=== PATIENT | male | born 1955 | race Caucasian/White ===

== ENCOUNTER → 2018-02-11 15:38 | Outpatient (CLI) | payer BC, SELFPAY ==
--- NOTE | 2018-02-11 15:46 | XR_ITS ---
EXAM: XR thoracic spine 3V HISTORY: ITS.REASON: THORACIC/LUMBAR BACK PAIN Comparison: None FINDINGS: Normal alignment. No fracture or dislocation. No lytic or blastic change. Small right-sided endplate osteophytes are present at T10-T11. Minimal degenerative disc disease noted in the midthoracic spine. IMPRESSION: Mild thoracic spine spondylosis, no acute finding
--- NOTE | 2018-02-11 15:46 | XR_ITS ---
EXAM: XR lumbar spine min 4V HISTORY: ITS.REASON: THORACIC/LUMBAR BACK PAIN ORDERING PHYSICIAN: Esteban Jones PATIENT AGE: 63 years COMPARISON: None FINDINGS: Normal alignment. No fracture or dislocation. No lytic or blastic change. No significant degenerative change. The disc spaces are preserved. IMPRESSION: Negative lumbar spine
== END ==
PROVIDERS: PCP Internal Medicine; Visit Provider Internal Medicine
DX: M54.5 Low back pain (principal); M54.6 Pain in thoracic spine
CPT/HCPCS: 72072; 72110

== ENCOUNTER 2018-03-11 10:30 | Outpatient (RCR) | payer BC, SELFPAY ==
--- NOTE | 2018-03-04 11:58 | HMH.PTOPEV ---
PT Outpatient Evaluation Rehab PT Outpatient Evaluation Start: 03/04/18 11:42 Freq: Status: Active Protocol: Document 03/04/18 11:43 CRISTA (Rec: 03/04/18 11:58 CRISTA [id number]) Electronically Signed By Murray Charles, PT 03/04/18 11:43 Outpatient Therapy Subjective History Subjective History Pt is s a 63 year old male presenting to outpatient PT with reports of thoracic and lumbar spine pain (thoracic> lumbar) of insidious onset starting in 2000 with the most recent exacerbation starting 12/2017. Main complaint is thoracic pain espcially in operating position. 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 Chief Complaint Pain Spasms Stiff Symptom Type Sharp Symptoms Relieved By Rest/Positioning Ice Symptoms Aggravated By Bending/Stooping Lifting Prior Functional Limitations None Current Functional Limitations Reaching Lifting Housework Driving Recreation Activity Symptom Description Intermittent Level of pain today (0-10) 0 Pain scale - at its best (0-10) 0 Pain scale - at its worst (0-10) 7 Lumbopelvic Eval Posture Thoracic Spine Posture Standing Position Increased Kyphosis Lumbar Spine Posture Standing Position Decreased Lordosis Assistive device Assistive Devices None / NA Palapation tenderness bilateral lumbar spinal tenderness Yes paraspinal tenderness Yes Accessory Movement T10 bilateral T11 bilateral T12 bilateral Range of Motion Lumbar Spine Active Flexion Range of 85 Motion (degrees) Lumbar Spine Active Extension Range of 25 Motion (degrees) Left Lumbar Spine Lateral Flexion Active 15 Range of Motion (degrees) Right Lumbar Spine Lateral Flexion 15 Active Range of Motion (degrees) Lumbar Spine ROM Limitations Soft Tissue Tightness Bony Restriction Manual Muscle Test Bilateral Knee Extension Strength Grade 5 Normal Knee Flexion Strength Grade 5 Normal Hip Flexion Strength Grade
== END 2018-03-11 10:31 | disposition home or self-care (01) ==
LOC: PT 10:30
PROVIDERS: Family Provider Internal Medicine; PCP Internal Medicine; Visit Provider Internal Medicine
DX: M54.6 Pain in thoracic spine (principal); M54.5 Low back pain
CPT/HCPCS: 97110; 97163

== ENCOUNTER → 2018-04-15 11:51 | Outpatient (CLI) | payer BC, SELFPAY | PROVIDERS: PCP Internal Medicine; Visit Provider Internal Medicine | DX: I10 Essential (primary) hypertension (principal); R53.83 Other fatigue | CPT/HCPCS: 93005 ==

== ENCOUNTER → 2018-11-04 07:31 | Outpatient (CLI) | payer BC, SELFPAY ==
[2018-11-04 08:09] LABS: Basophils % 0.7 % (0.1-2.0); Eosinophils # 0.2 K/mm3 (0.0-0.4); Eosinophils % 3.7 % (0.1-12.0); Hemoglobin 15.6 g/dL (14.1-18.0); Lymphocytes # 1.1 K/mm3 (0.7-4.5); Lymphocytes % 20.8 % (10-50); Mean Corpuscular HGB Conc 34.6 g/dL (31.8-35.4); Mean Corpuscular Hemoglobin 30.5 pg (27.0-31.2); Mean Corpuscular Volume 88.2 fl (80-94); Mean Platelet Volume 6.5 fl (7.4-10.4); Monocytes # 0.3 K/mm3 (0.1-1.0); Monocytes % 5.1 % (1.7-9.3); Neutrophils # 3.6 K/mm3 (1.8-7.8); Neutrophils % 69.6 % (37.0-80.0); Platelet Count 265 K/mm3 (142-424); Red Blood Count 5.11 M/mm3 (4.60-6.20); Red Cell Distribution Width 12.5 % (11.5-17.5); White Blood Count 5.1 K/mm3 (4.8-10.8)
[2018-11-04 09:02] LABS: Alanine Aminotransferase 27 U/L (12-78); Albumin/Globulin Ratio 1.2 (1.1-1.8); Alkaline Phosphatase 63 U/L (46-116); Anion Gap 13.6 mEq/L (5-15); Aspartate Amino Transferase 14 U/L (15-37); Bilirubin,Total 0.8 mg/dL (0.2-1.0); Blood Urea Nitrogen 9 mg/dL (7-18); Calcium 8.8 mg/dL (8.5-10.1); Carbon Dioxide 26 mmol/L (21.0-32.0); Chloride 95 mmol/L (98-107); Creatinine,Serum 0.82 mg/dL (0.70-1.30); Estimated Glomerular Filt Rate 95 ml/min (>60); GFR (African American) 114 ML/MIN (>60); Globulin 3.3 gm/dl (1.3-3.2); Glucose 95 mg/dL (74-106); Potassium 4.6 mmoL/L (3.5-5.1); Sodium 130 mmol/L (136-145); Total Protein,Serum 7.3 gm/dL (6.4-8.2)
== END ==
PROVIDERS: Visit Provider Specialist
DX: R42 Dizziness and giddiness (principal)
CPT/HCPCS: 36415; 80053; 85025

== ENCOUNTER → 2018-11-12 12:46 | Outpatient (CLI) | payer BC, SELFPAY ==
[2018-11-15 08:50] LABS: C difficile Toxins AB, EIA Negative (Negative)
== END ==
PROVIDERS: Visit Provider Internal Medicine
DX: T36.95XA Adverse effect of unspecified systemic antibiotic, initial encounter (principal); A02.9 Salmonella infection, unspecified
CPT/HCPCS: 87045; 87205; 87324

== ENCOUNTER → 2018-11-17 08:40 | Outpatient (CLI) | payer BC, SELFPAY | PROVIDERS: PCP Internal Medicine; Visit Provider Specialist | DX: R42 Dizziness and giddiness (principal) | CPT/HCPCS: 94762 ==

== ENCOUNTER 2018-12-21 17:30 | Outpatient (RCR) | payer BC, SELFPAY ==
--- NOTE | 2018-11-03 18:43 | HMH.PTOPEV ---
PT Outpatient Evaluation Rehab PT Outpatient Evaluation Start: 11/03/18 18:35 Freq: Status: Active Protocol: Document 11/03/18 18:35 DASH (Rec: 11/03/18 18:43 PWDOMINICK [id number]) Electronically Signed By Cale Ellsworth, PT 11/03/18 18:35 Outpatient Therapy Subjective History Subjective History This is the initial Physical THerapy evaluation for Elyssa FernandesDonald Pauly. Pt is a 63 y/o male referred to PT for c/o dizziness. Pt rpeorts complaints began after long air trip and two week cruise. Pt rpeorts he noticed S&S after returning home and felt they were just jet lag and residual motion sickness from the cruise. Pt reports as time went by S&S did not subside. Pt reports S&S are normally worse w/ L rotation and or vertical head displacement. Chief Complaint Other Symptom Type Other Symptoms Relieved By Rest/Positioning Symptoms Aggravated By Bending/Stooping,Twisting, Walking Prior Functional Limitations None Current Functional Limitations Driving,Sleeping,Recreation Activity,Bending/Stooping Symptom Description Intermittent Balance Eval Chief Complaint Did you feel dizzy, unsteady or faint? Yes Hx of Falls Hx Falls No Gait/Posture Asssessment General Gait Observation No Deviations/Normal,Wide Based Gait Assistive Devices None / NA Level of Transfer Assist Independent Hip Observation in Gait Swing No Deviation Hip Observation in Gait Stance No Deviation Ankle/Foot Observation in Gait Swing No Deviation Ankle/Foot Observation in Gait Stance No Deviation Hip Posture Standing Position (L) Neutral,(R) Neutral Body Alignment Posture Rigid Nystagmus Nystagmus Presence None Oculomotor Gaze Oculomotor Gaze Nml: Vergence Smooth Pursuit Saccades VOR Cancellation Cover/Uncover Cross Cover Outpatient Therapy Assessment Impairments Problems/Impairmments Impaired Walking,Impaired Shower/Bathing,Impaired Household Care,Impaired
== END 2018-12-21 17:35 | disposition home or self-care (01) ==
LOC: PT 17:30
PROVIDERS: Visit Provider Specialist
DX: R42 Dizziness and giddiness (principal)
CPT/HCPCS: 97010; 97012; 97014; 97110; 97140; 97163; G0283

== ENCOUNTER → 2019-03-03 18:30 | Outpatient (CLI) | payer MEDICARE, BC, SELFPAY ==
[2019-03-04 08:06] LABS: Adenovirus F 40/41, stool Not Detected (NotDetected); Astrovirus Not Detected (NotDetected); Campylobacter Not Detected (NotDetected); Clostridium Difficile A/B, PCR Not Detected (NotDetected); Cryptosporidium Not Detected (NotDetected); Cyclospora Cayetanesis Not Detected (NotDetected); Entamoeba histolytica Not Detected (NotDetected); Enteroaggregative E coli Not Detected (NotDetected); Enteropathogenic E coli Not Detected (NotDetected); Enterotoxigenic E coli Not Detected (NotDetected); Giardia lamblia Not Detected (NotDetected); Norovirus Not Detected (NotDetected); Plesimonas Shigalloides, PCR Not Detected (NotDetected); Rotavirus A Not Detected (NotDetected); Salmonella, PCR Not Detected (NotDetected); Sapovirus Not Detected (NotDetected); Shiga-like toxin E coli Not Detected (NotDetected); Shigella Enterovasive E coli Not Detected (NotDetected); Vibrio Cholerae Not Detected (NotDetected); Vibrio, PCR Not Detected (NotDetected); Yersinia Entercolitica, PCR Not Detected (NotDetected)
== END ==
PROVIDERS: Visit Provider Internal Medicine
DX: R19.7 Diarrhea, unspecified (principal)
CPT/HCPCS: 87205; 87506

== ENCOUNTER → 2019-03-29 17:37 | Outpatient (CLI) | payer MEDICARE, BC, SELFPAY ==
[2019-03-29 19:32] LABS: Prostate Specific Ag Screen 1.8 ng/mL (0.0-4.0)
== END ==
PROVIDERS: Visit Provider Internal Medicine
DX: Z12.5 Encounter for screening for malignant neoplasm of prostate (principal)
CPT/HCPCS: 36415; G0103

== ENCOUNTER → 2019-06-12 14:44 | Outpatient (POV) | payer MEDICARE, BC, SELFPAY | PROVIDERS: Visit Provider Nurse Practitioner Family | DX: Z00.00 Encounter for general adult medical examination without abnormal findings (principal) ==

== ENCOUNTER → 2019-07-26 09:39 | Outpatient (CLI) | payer MEDICARE, BC, SELFPAY ==
[2019-07-26 09:59] LABS: Basophils % 0.1 % (0.1-2.0); Eosinophils # 0.1 K/mm3 (0.0-0.4); Eosinophils % 1.9 % (0.1-12.0); Hematocrit 46.9 % (42.0-52.0); Hemoglobin 15.9 g/dL (14.1-18.0); Lymphocytes # 1.1 K/mm3 (0.7-4.5); Lymphocytes % 16.4 % (10-50); Mean Corpuscular HGB Conc 33.9 g/dL (31.8-35.4); Mean Corpuscular Hemoglobin 30.6 pg (27.0-31.2); Mean Corpuscular Volume 90.3 fl (80-94); Mean Platelet Volume 6.7 fl (7.4-10.4); Monocytes # 0.2 K/mm3 (0.1-1.0); Monocytes % 3.6 % (1.7-9.3); Neutrophils # 5.3 K/mm3 (1.8-7.8); Neutrophils % 78.1 % (37.0-80.0); Platelet Count 257 K/mm3 (142-424); Red Blood Count 5.19 M/mm3 (4.60-6.20); Red Cell Distribution Width 12.4 % (11.5-17.5); White Blood Count 6.8 K/mm3 (4.8-10.8)
--- NOTE | 2019-07-26 10:02 | ECG_ITS ---
APPROVED REPORT Exam: Resting ECG HR:73 bpm ECG Measurements Heart Rate 73 AXES OR 140 P 51 QRSd 88 QRS 5 QT 388 T 22 QTc 427 <Conclusion> Normal sinus rhythm Normal ECG Electronically signed by : Esteban Jones, 07/26/2019 10:40:27
--- NOTE | 2019-07-26 10:02 | XR_ITS ---
PROCEDURE: XR CHEST 2V CLINICAL HISTORY: WEAKNESS,SIZZINESS,SOB COMPARISON: CXR CHEST(2 VIEWS-NOT PORTABLE) from 01/24/2016 FINDINGS: The cardiomediastinal silhouette and pulmonary vascularity are within normal limits. The lungs are clear without infiltrates, suspicious nodules, or pleural effusions. No acute bony abnormalities. IMPRESSION: No acute findings. Dictated by: Bipin Cruz MD 07/26/2019 10:24 Electronically signed by Bipni Cruz MD in [facility] 07/26/2019 10:24
[2019-07-26 10:08] LABS: Blood Urea Nitrogen 14 mg/dL (7-18); Potassium 4.2 mmoL/L (3.5-5.1)
[2019-07-26 10:15] LABS: Anion Gap 11.2 mEq/L (5-15); Calcium 8.9 mg/dL (8.5-10.1); Carbon Dioxide 30 mmol/L (21.0-32.0); Chloride 102 mmol/L (98-107); Estimated Glomerular Filt Rate 75 ml/min (>60); GFR (African American) 91 ML/MIN (>60); Glucose 105 mg/dL (74-106); Sodium 139 mmol/L (136-145)
[2019-07-26 10:23] LABS: Troponin I < 0.02 ng/ml (0.00-0.06)
== END ==
PROVIDERS: Visit Provider Internal Medicine
DX: R06.02 Shortness of breath (principal); R53.1 Weakness; R42 Dizziness and giddiness; I10 Essential (primary) hypertension
CPT/HCPCS: 36415; 71046; 80048; 84484; 85025; 93005

== ENCOUNTER → 2019-08-04 07:46 | Outpatient (CLI) | payer MEDICARE, BC, SELFPAY ==
--- NOTE | 2019-08-04 | CA_ITS ---
APPROVED REPORT EXAM: Comprehensive 2D, Doppler, and color-flow Echocardiogram Interior Surface Insulation Worker: Re Singleton CRT Ht: 5 ft 10 in Wt: 170lbs BSA: 1.95 BP: 120/70 mmHg Indications: Shortness of Breath, Dizziness and Vertigo, Fatigue 2D Dimensions LVOT 1.67 cm (M/F) 1.5-2.5 M-Mode Dimensions RVDd 2.18 cm (0.9-2.6) LVDd 4.56 cm (3.5-5.7) LVDs 3.74 cm (3.5-5.7) IVSd 0.82 cm (0.6-1.1) PWd 1.07 cm (0.6-1.1) EF (Teich) 37.50% FS 18.00% EDV (Teich) 95.40 mL ESV (Teich) 59.60 mL LV Diastology E/A Ratio 0.50 Mitral Valve MV A Velocity 85.00 (40-130 cm/s) Left Ventricle Left atrium is mildly enlarged, left ventricle is normal size, visually estimated ejection fraction 55% with no regional wall motion abnormality, grade 1 diastolic dysfunction seen without tissue Doppler evidence of raise left atrial pressure. Right Ventricle Right atrium and right ventricular normal size and contractility. Aortic Valve Aortic valve is minimally thickened and fibrosed. There is no aortic stenosis aortic insufficiency. Mitral Valve Mitral valve is grossly normal, there is mild mitral regurgitation. Tricuspid Valve Tricuspid valve is grossly normal, there is mild tricuspid regurgitation. Calculated right ventricular systolic pressure 33 mmHg. Pulmonic Valve Pulmonic valve is poorly visualized. Great Vessels Aortic root is normal size. Pericardium No significant pericardial effusion noted. Conclusion 1. Mildly enlarged left atrium, normal left ventricular size, mild concentric left ventricular hypertrophy, visually estimated ejection fraction 55% with no regional wall motion abnormality, grade 1 diastolic dysfunction seen without tissue Doppler evidence of raise left atrial pressure. 2. Mild mitral and tricuspid regurgitation, calculated right ventricular systolic pressure 33 mmHg 3. No significant pericardial effusion noted. Electronically signed by : Rashawn Goodman, 08/04/2019 14:28:04
== END ==
PROVIDERS: PCP Internal Medicine; Visit Provider Internal Medicine
DX: R06.09 Other forms of dyspnea (principal); R53.1 Weakness; R53.83 Other fatigue; R42 Dizziness and giddiness
CPT/HCPCS: 93306

== ENCOUNTER → 2019-09-14 08:21 | Outpatient (CLI) | payer MEDICARE, BC, SELFPAY ==
--- NOTE | 2019-09-14 08:24 | US_ITS ---
PROCEDURE: US LIVER CLINICAL INDICATION: RUQ PAIN Right upper quadrant pain and nausea COMPARISON: No exams were available for comparison FINDINGS: PANCREAS: Pancreas is poorly demonstrated. LIVER: No focal liver lesions demonstrated. Homogeneous echogenicity. No intrahepatic biliary ductal dilatation evident. There is appropriate direction of blood flow within a non dilated portal vein RIGHT KIDNEY: Unremarkable. Normal size and echogenicity. No hydronephrosis GALLBLADDER: No gallstones, gallbladder wall thickening, pericholecystic fluid, or biliary dilatation. IMPRESSION: Unremarkable limited abdominal ultrasound as detailed above disc Dictated by: Bipin Cruz MD 09/14/2019 15:58 Electronically signed by Bipin Cruz MD in [facility] 09/14/2019 15:58
== END ==
PROVIDERS: PCP Internal Medicine; Visit Provider Internal Medicine Adolescent Medicine
DX: R10.11 Right upper quadrant pain (principal); R06.09 Other forms of dyspnea
CPT/HCPCS: 76705; 94060; 94726; 94729

== ENCOUNTER → 2019-09-20 07:54 | Outpatient (CLI) | payer MEDICARE, BC, SELFPAY ==
--- NOTE | 2019-09-20 07:56 | CT_ITS ---
PROCEDURE: CT CHEST WO CON CLINICAL INDICATION: DYSPNEA ON EXERTION COMPARISON: No exams were available for comparison TECHNIQUE: Axial images obtained with sagittal and coronal reformats. All CT scans at the facility use one or more dose reduction, viz: automated exposure control, ma/kV adjustment per patient size (including targeted exams where dose is matched to indication, i.e. head), or iterative reconstruction technique. FINDINGS: HEART AND MEDIASTINAL STRUCTURES: There are coronary arterial calcifications. LUNGS AND PLEURAL SPACES: Lungs are hyperinflated. There is no acute infiltrate. There is healed granulomatous disease with multiple bilateral calcified granulomas and calcified mediastinal and bilateral hilar lymph nodes. A 2 millimeter indeterminate pulmonary nodule is seen in the right apex image 11 series 3. 3 millimeter pleural-based nodule is seen in the right upper lobe image 21 series 3. Noncalcified granulomas are favored for these findings. Linear density consistent with fibrosis or discoid atelectasis is seen in both lung bases. BONY STRUCTURES: No acute bony abnormalities apparent. UPPER ABDOMEN: An 8 millimeter hypodensity is seen in the left liver image 66 series 3. It is too small to definitively characterize. It does not fulfill strict criteria for a benign simple cyst.4 ADDITIONAL FINDINGS: There is mild bilateral gynecomastia. No other significant abnormalities. IMPRESSION: No acute cardiopulmonary findings. Evidence of healed granulomatous disease with nodules less than 4 millimeters described in both lung palomares probably benign. Optional 12 month follow-up exam would be indicated in a patient at high risk for malignancy based on Fleischner society criteria Coronary arterial calcifications. 8 millimeter hypodensity left liver favored to be a cyst but it is too small to definitively characterize. Dictated by: Aakash Fine 09/20/2019 08:47 Electronically signed by Aakash Fine in [facility] 09/20/2019 08:47
== END ==
PROVIDERS: PCP Internal Medicine; Visit Provider Internal Medicine Adolescent Medicine
DX: R06.09 Other forms of dyspnea (principal)
CPT/HCPCS: 71250

== ENCOUNTER → 2019-09-22 12:30 | Outpatient (CLI) | payer MEDICARE, BC, SELFPAY ==
[2019-09-22 12:47] LABS: Basophils % 0.5 % (0.1-2.0); Eosinophils # 0.2 K/mm3 (0.0-0.4); Eosinophils % 2.1 % (0.1-12.0); Hematocrit 49.3 % (42.0-52.0); Hemoglobin 16.3 g/dL (14.1-18.0); Lymphocytes % 13.8 % (10-50); Mean Corpuscular Hemoglobin 30.8 pg (27.0-31.2); Mean Corpuscular Volume 93.2 fl (80-94); Monocytes # 0.3 K/mm3 (0.1-1.0); Monocytes % 4.4 % (1.7-9.3); Neutrophils # 5.9 K/mm3 (1.8-7.8); Neutrophils % 79.2 % (37.0-80.0); Platelet Count 247 K/mm3 (142-424); White Blood Count 7.5 K/mm3 (4.8-10.8)
[2019-09-22 13:09] LABS: Alanine Aminotransferase 21 U/L (12-78); Albumin Level 4.3 g/dl (3.5-5.0); Albumin/Globulin Ratio 1.6 (1.1-1.8); Alkaline Phosphatase 55 U/L (38-126); Anion Gap 11.5 mEq/L (5-15); Aspartate Amino Transferase 25 U/L (17-59); Bilirubin,Total 0.6 mg/dl (0.2-1.3); Blood Urea Nitrogen 14 mg/dl (9-20); Calcium 9.4 mg/dl (8.4-10.2); Carbon Dioxide 28 mmol/L (22.0-30.0); Chloride 97 mmol/L (98-107); Estimated Glomerular Filt Rate 113 ml/min (>60); GFR (African American) 137 ML/MIN (>60); Globulin 2.7 g/dL (1.3-3.2); Glucose 94 mg/dl (74-100); Potassium 4.5 mmoL/L (3.5-5.1); Sodium 132 mmol/L (136-145)
[2019-09-22 13:19] LABS: NT Pro Brain Natriuretic Pep. 147 pg/mL (0-125)
== END ==
PROVIDERS: Visit Provider Internal Medicine Adolescent Medicine
DX: R06.00 Dyspnea, unspecified (principal)
CPT/HCPCS: 36415; 80053; 83880; 85025

== ENCOUNTER → 2019-09-27 06:39 | Outpatient (CLI) | payer MEDICARE, BC, SELFPAY ==
--- NOTE | 2019-09-27 | CA_ITS ---
APPROVED REPORT Exam: Exercise Treadmill Technologist: Rere Florez Ht: 5 ft 10 in Wt: 170 lbs BSA: 1.95 m2 HR: 66 bpm BP: 142/92 mmHg Indications: Dyspnea Medical History Medications: Budesonide,,,,, Stress Test Details Test: Rafael HR Resting HR: 68 bpm Max Heart Rate (APMHR): 155 bpm Max HR Achieved: 135 bpm Target HR (85% APMHR): 131 bpm % of APMHR: 87 Recovery HR: 87 bpm BP Resting BP: 142.0/92.0 mmHg Max BP: 171.0/96.0 mmHg Recovery BP: 135.0/87.0 mmHg ECG Clinical Exercise duration: 10:00 min Highest Stage Achieved: Exercise capacity: 10.1 METs Stress ECG Conclusion Resting ECG: Sinus rhythm Rafael protocol completed. Exercised 10:00. Test stopped due to shortenss of breath. Symptoms: Shortness of breath at peak exercise. Resolved in recovery. No chest pain. Arrhythmias/Ectopy: Occasional PVC ST-T Changes: Less than 1.[address] depression. Conclusion: Images to follow. Test Summary REST 11:52 0.0 0.0 68 . 142/ 92 . . Stage 1 01:00 10.0 1.7 83 . . . . Stage 1 02:00 10.0 1.7 87 . . . . Stage 1 03:00 10.0 1.7 91 . 140/ 80 . . Stage 2 01:00 12.0 2.5 99 . . . . Stage 2 02:00 12.0 2.5 105 . . . . Stage 2 03:00 12.0 2.5 111 . 150/ 88 . . Stage 3 01:00 14.0 3.4 118 . . . . Stage 3 02:00 14.0 3.4 124 . . . . Stage 3 . . . . . . . Stage held Stage 3 03:00 14.0 3.4 131 . 150/ 86 . . Stage 3 . . . . . . . Cardiolite injected Stage 3 . . . . . . . Stage resumed Stage 3 04:00 14.0 3.4 135 . 150/ 86 . Stop exercise at 10:00 RECOVERY 01:00 0.0 0.0 128 . 158/ 84 . . RECOVERY 02:00 0.0 0.0 118 . 158/ 84 . . RECOVERY 03:00 0.0 0.0 108 . 148/ 86 . . RECOVERY 04:00 0.0 0.0 99 . 163/ 86 . . RECOVERY 05:00 0.0 0.0 94 . 171/ 96 . . RECOVERY 06:00 0.0 0.0 87 . 171/ 96 . . RECOVERY 06:52 0.0 0.0 89 . 135/ 87 . . Electronically signed by : Rashawn Goodman, 09/27/2019 10:21:37
--- NOTE | 2019-09-27 06:44 | NM_ITS ---
APPROVED REPORT Exam: Nuclear Stress Test Indication: SOB, Dizziness Patient Location: Outpatient Stress Tech: Rere Florez MT Tech:Radha Farmer, ARRT, RT (R)(N) Ht: 5 ft 10 in Wt: 170 lbs HR: 66 bpm BP: 142/92 mmHg BSA: 1.95 m2 BMI: 24.3 History: SOB, Dizziness Procedure: Patient exercised on Rafael protocol 10:00 minutes and sec, resting heart rate 66 bpm, resting blood pressure 142/92 mmHg, with exercise maximum heart rate achived was 135 bpm which is Greater than 85 % of the maximum predicted heart rate and blood pressure was 171/96 mmHg. Test was stopped due to fatigue. Patient denied any complaint of chest pain. Patient has Good exercise capacity, achieved 10.1 METs of workload on treadmill, the blood pressure response to exercise was Adequate. Electrocardiogram Resting electrocardiogram showed sinus rhythm, with exercise there is less than 1.[address] segment depression noted from the baseline EKG. The EKG portion of the exercise Myoview is negative for ischemia. Cardiac Stress and Resting SPECT Images: Cardiac Stress and Resting SPECT images were obtained using technetium 99m Myoview 30.3 mCi stress and 10.35 mCi at rest. Gated SPECT for analysis of segmental wall motion and calculation of the ejection fraction also done. Cardiac stress and resting SPECT images show a mild fixed defect in the inferior and apical wall with normal contractility and the gated SPECT is likely secondary to soft tissue attenuation, no reversible ischemia seen. Computer derived ejection fraction is 60% with no regional wall motion abnormality, right ventricle is normal size and contractility. Conclusion: 1. The EKG portion of the exercise Myoview is negative for ischemia, patient has good exercise capacity achieved 10.1 mets of workload on treadmill, the blood pressure response to exercise was adequate, there was no exercise-induced chest discomfort, test was stopped due to fatigue. 2. No scintigraphic evidence of reversible ischemia seen at this level of exercise, computer derived ejection fraction is 60% with no regional wall motion abnormality, right ventricle is normal size and contractility. 3. Likely normal exercise Myoview study. Electronically signed by : Rashawn Goodman, 09/27/2019 10:26:30
--- NOTE | 2019-09-27 07:58 | HMH.ITSHM ---
Current Home Medications as stated by this patient Keenan Coats or software support representative. []INDOCORT
== END ==
PROVIDERS: PCP Internal Medicine Adolescent Medicine; Visit Provider Internal Medicine Adolescent Medicine
DX: R06.00 Dyspnea, unspecified (principal)
CPT/HCPCS: 78452; 93017; A9502

== ENCOUNTER → 2019-10-03 14:00 | Outpatient (CLI) | payer SELFPAY ==
--- NOTE | 2019-10-03 14:01 | CT_ITS ---
PROCEDURE: CT HEART W CALCIUM SCORE CLINICAL HISTORY: coronary calcification seen on CT COMPARISON: No exams were available for comparison TECHNIQUE: Axial images obtained with sagittal and coronal reformats. All CT scans at the facility use one or more dose reduction, viz: automated exposure control, ma/kV adjustment per patient size (including targeted exams where dose is matched to indication, i.e. head), or iterative reconstruction technique. FINDINGS: Coronary artery calcium score is 166 indicating a moderate calcific plaque burden with high cardiovascular disease risk. Incidental note is made calcified hilar lymph nodes. IMPRESSION: Moderate calcific plaque burden with high cardiovascular disease risk Dictated by: Bipin Cruz MD 10/03/2019 15:34 Electronically signed by Bipin Cruz MD in [facility] 10/03/2019 15:34
== END ==
PROVIDERS: PCP Internal Medicine Adolescent Medicine; Visit Provider Nurse Practitioner Family
DX: Z13.6 Encounter for screening for cardiovascular disorders (principal); I25.10 Atherosclerotic heart disease of native coronary artery without angina pectoris; I27.20 Pulmonary hypertension, unspecified; R06.00 Dyspnea, unspecified
CPT/HCPCS: 75571

== ENCOUNTER 2019-10-04 08:30 | Day surgery (SDC) | payer MEDICARE, BC, SELFPAY ==
[2019-10-04] VITALS (10 sets, daily range): BP systolic 95–139; BP diastolic 58–91; PULSE 51–87; RESP 16–20; TEMP 36.6; O2SAT 96–99; BMI 25.1
[2019-10-04 09:00] LABS: Basophils % 0.5 % (0.1-2.0); Eosinophils # 0.2 K/mm3 (0.0-0.4); Eosinophils % 2.3 % (0.1-12.0); Hematocrit 51.4 % (42.0-52.0); Hemoglobin 17.3 g/dL (14.1-18.0); Lymphocytes # 1.1 K/mm3 (0.7-4.5); Lymphocytes % 16.2 % (10-50); Mean Corpuscular HGB Conc 33.6 g/dL (31.8-35.4); Mean Corpuscular Hemoglobin 31.1 pg (27.0-31.2); Mean Corpuscular Volume 92.7 fl (80-94); Mean Platelet Volume 7.1 fl (7.4-10.4); Monocytes # 0.4 K/mm3 (0.1-1.0); Monocytes % 5.1 % (1.7-9.3); Neutrophils # 5.2 K/mm3 (1.8-7.8); Platelet Count 277 K/mm3 (142-424); Red Blood Count 5.55 M/mm3 (4.60-6.20); Red Cell Distribution Width 12.9 % (11.5-17.5); White Blood Count 6.8 K/mm3 (4.8-10.8)
[2019-10-04 09:03] LABS: Chloride 99 mmol/L (98-107); Potassium 4.1 mmoL/L (3.5-5.1); Sodium 136 mmol/L (136-145)
[2019-10-04 09:06] LABS: Anion Gap 12.1 mEq/L (5-15); Blood Urea Nitrogen 11 mg/dl (9-20); Carbon Dioxide 29 mmol/L (22.0-30.0); Creatinine Clearance Estimated 83 mL/min (50-200); Estimated Glomerular Filt Rate 85 ml/min (>60); GFR (African American) 102 ML/MIN (>60)
[2019-10-04 09:07] LABS: Calcium 9.4 mg/dl (8.4-10.2); Glucose 103 mg/dl (74-100)
--- NOTE | 2019-10-04 11:15 | IR_ITS ---
APPROVED REPORT Patient Location: Outpatient Barrel Washer: SILVANA Nelson RT (R) PROCEDURES Right heart catheterization Left heart catheterization Left ventriculogram Selective coronary angiogram INDICATION Pulmonary hypertension, Class IV angina pectoris, Elevated coronary calcium score, Class IV congestive heart failure symptoms Informed consent was obtained prior to the procedure. COMPLICATIONS none Estimated Blood Loss: less than 10 mls TECHNIQUE One percent lidocaine was used to anesthetize the right anterior aspect of the right wrist. The right radial artery was accessed via the Seldinger technique and a 6 Afghan hydrophilic sheath was placed in the right radial artery. Following this one percent lidocaine was used to anesthetize the right groin, the right femoral vein was accessed via the Seldinger technique and a 7 Afghan sheath was placed in the right femoral vein. Following this an arterial cocktail was administered using 5000U heparin, 2.5 mg verapamil, 1mg Lidocaine and 800mcg nitroglycerin into the right radial sheath. A trap catheter was used to perform left heart catheterization left ventriculogram and selective coronary angiography while a [place] Laura catheter was used to perform right heart catheterization. Saturations were obtained in the pulmonary artery and right atrium. At the end of the procedure the arterial sheath was removed good hemostasis was achieved using Traclet band. Patient was transferred to the postop holding area in stable condition for venous sheath removal. ANGIOGRAPHIC RESULTS The left main artery Normal The left anterior descending artery Is a smooth proximal 10 to 20% stenosis with remaining vessel normal The circumflex artery Normal The right coronary artery Dominant normal The WORRELL ventriculogram reveals Normal 65% The left ventricular end-diastolic pressure 10 mmHg Right atrial pressure 2 mmHg Pulmonary artery pressure 15/5 mmHg Pulmonary artery occlusion pressure 5 mmHg Right atrial saturation 82% Pulmonary artery saturation 82% IMPRESSION Mild [id number] coronary disease in the proximal LAD Normal ejection fraction Normal intra-cardiopulmonary filling pressures PLAN 1. Evaluation of noncardiac symptomatology 2. Recommend pulmonary function testing 3. LDL less than 55 4. Daily aspirin 81 mg Electronically signed by : Javier Arizmendi, 10/04/2019 10:36:09
[2019-10-04 12:56] LABS: CATHL Arterial O2 SAT 81.6 % (90-100); CATHL Venous O2 SAT 82.4 % (75-80)
== END 2019-10-04 13:42 | disposition home or self-care (01) ==
LOC: CATHLAB 08:31
PROVIDERS: PCP Internal Medicine Adolescent Medicine; Visit Provider Internal Medicine
DX: I27.20 Pulmonary hypertension, unspecified; I25.118 Atherosclerotic heart disease of native coronary artery with other forms of angina pectoris; I50.30 Unspecified diastolic (congestive) heart failure; Z87.891 Personal history of nicotine dependence; Z88.0 Allergy status to penicillin; Z88.1 Allergy status to other antibiotic agents; Z88.2 Allergy status to sulfonamides
CPT/HCPCS: 80048; 82810; 85025; 93460; 99152; C1725; C1769; C1894; J1644; Q9967

== ENCOUNTER → 2019-10-11 14:37 | Outpatient (CLI) | payer MEDICARE, BC, SELFPAY ==
[2019-10-11 15:24] LABS: Basophils # 0.1 K/mm3 (0-0.2); Basophils % 0.8 % (0.1-2.0); Eosinophils # 0.1 K/mm3 (0.0-0.4); Eosinophils % 1.7 % (0.1-12.0); Hematocrit 47.9 % (42.0-52.0); Hemoglobin 16.5 g/dL (14.1-18.0); Lymphocytes # 1.1 K/mm3 (0.7-4.5); Lymphocytes % 14.9 % (10-50); Mean Corpuscular HGB Conc 34.4 g/dL (31.8-35.4); Mean Corpuscular Volume 90.1 fl (80-94); Mean Platelet Volume 7.3 fl (7.4-10.4); Monocytes # 0.3 K/mm3 (0.1-1.0); Monocytes % 4.5 % (1.7-9.3); Neutrophils # 5.7 K/mm3 (1.8-7.8); Neutrophils % 78.1 % (37.0-80.0); Platelet Count 288 K/mm3 (142-424); Red Blood Count 5.32 M/mm3 (4.60-6.20); Red Cell Distribution Width 12.5 % (11.5-17.5); White Blood Count 7.4 K/mm3 (4.8-10.8)
[2019-10-11 16:27] LABS: Chloride 91 mmol/L (98-107); Potassium 4.5 mmoL/L (3.5-5.1); Sodium 129 mmol/L (136-145)
[2019-10-11 16:29] LABS: Blood Urea Nitrogen 9 mg/dl (9-20); Estimated Glomerular Filt Rate 97 ml/min (>60); GFR (African American) 117 ML/MIN (>60)
[2019-10-11 16:30] LABS: Alanine Aminotransferase 18 U/L (12-78); Albumin Level 4.4 g/dl (3.5-5.0); Albumin/Globulin Ratio 1.6 (1.1-1.8); Alkaline Phosphatase 60 U/L (38-126); Anion Gap 12.5 mEq/L (5-15); Aspartate Amino Transferase 26 U/L (17-59); Bilirubin,Total 0.8 mg/dl (0.2-1.3); Calcium 9.3 mg/dl (8.4-10.2); Carbon Dioxide 30 mmol/L (22.0-30.0); Globulin 2.7 g/dL (1.3-3.2); Glucose 90 mg/dl (74-100); Magnesium 2.3 mg/dl (1.6-2.3); Total Protein,Serum 7.1 g/dl (6.3-8.2)
[2019-10-11 17:01] LABS: Prostate Specific Ag Screen 2.4 ng/ml (0.0-4.0)
[2019-10-11 18:35] LABS: Triiodothryronine (T3) Uptake 37 % (23.5-40.5)
[2019-10-11 18:36] LABS: Free Thyroxine Index 2.9 ug/dL (5.93-13.13); T4 (Thyroxine) 7.9 ug/dl (5.53-11.0)
[2019-10-11 18:49] LABS: Thyroid Stimulating Hormone 1.62 uIU/mL (0.465-4.68)
[2019-10-13 06:18] LABS: Vitamin D 25 Hydroxy 18.8 ng/mL (30.0-100.0)
[2019-10-13 14:33] LABS: Vitamin B12 419 pg/mL (232-1245)
== END ==
PROVIDERS: Visit Provider Internal Medicine Adolescent Medicine
DX: R53.83 Other fatigue (principal); R53.81 Other malaise; R06.00 Dyspnea, unspecified; E55.9 Vitamin D deficiency, unspecified; Z12.5 Encounter for screening for malignant neoplasm of prostate
CPT/HCPCS: 36415; 80053; 82607; 82652; 83735; 84436; 84443; 84479; 85025; G0103

== ENCOUNTER → 2020-02-22 16:48 | Outpatient (CLI) | payer MEDICARE, BC, SELFPAY ==
--- NOTE | 2020-02-22 17:15 | MR_ITS ---
PROCEDURE: MR HEAD/BRAIN WO CON CLINICAL INDICATION: VERTIGNIOUS SYNDROME, DIZZINESS DIZZINESS AND HEADACHES X1 YEAR COMPARISON: No exams were available for comparison TECHNIQUE: Routine multiplanar multi echo sequences are performed without gadolinium enhancement. FINDINGS: Line shift, mass effect, intracranial hemorrhage, hydrocephalus, or acute infarction is evident. The cerebellopontine angles, cerebellum, and brainstem have an unremarkable appearance. There are scattered periventricular and subcortical T2 white matter hyperintensities which are nonspecific. There is mild generalized atrophy. The pituitary, optic chiasm, corpus callosum, and craniocervical junction have an unremarkable appearance. Small amount fluid is present in the right mastoid sinus. There is also mucosal thickening involving the floor of the maxillary sinuses on both sides ethmoid sinuses, and frontal sinus. No air-fluid levels are evident. IMPRESSION: 1. No acute intracranial findings. 2. Mild paranasal sinus and right mastoid sinus disease Dictated by: Bipin Cruz MD 02/23/2020 11:03 Bipin Cruz MD in [facility] 02/23/2020 11:03
== END ==
PROVIDERS: PCP Internal Medicine Adolescent Medicine; Visit Provider Internal Medicine Adolescent Medicine
DX: G44.52 New daily persistent headache (NDPH) (principal); R42 Dizziness and giddiness
CPT/HCPCS: 70551

== ENCOUNTER → 2020-02-23 07:02 | Outpatient (CLI) | payer MEDICARE, BC, SELFPAY ==
[2020-02-23 08:19] LABS: Basophils % 0.8 % (0.1-2.0); Eosinophils # 0.2 K/mm3 (0.0-0.4); Eosinophils % 3.8 % (0.1-12.0); Hematocrit 50.5 % (42.0-52.0); Hemoglobin 17.3 g/dL (14.1-18.0); Lymphocytes # 1.2 K/mm3 (0.7-4.5); Lymphocytes % 22.4 % (10-50); Mean Corpuscular HGB Conc 34.2 g/dL (31.8-35.4); Mean Corpuscular Volume 93.5 fl (80-94); Mean Platelet Volume 7.7 fl (7.4-10.4); Monocytes # 0.3 K/mm3 (0.1-1.0); Monocytes % 5.4 % (1.7-9.3); Neutrophils # 3.7 K/mm3 (1.8-7.8); Neutrophils % 67.6 % (37.0-80.0); Platelet Count 276 K/mm3 (142-424); Red Cell Distribution Width 12.7 % (11.5-17.5); White Blood Count 5.5 K/mm3 (4.8-10.8)
[2020-02-23 09:02] LABS: Chloride 102 mmol/L (98-107); Potassium 4.8 mmoL/L (3.5-5.1); Sodium 136 mmol/L (136-145)
[2020-02-23 09:05] LABS: Alanine Aminotransferase 26 U/L (12-78); Albumin/Globulin Ratio 1.5 (1.1-1.8); Alkaline Phosphatase 59 U/L (38-126); Anion Gap 10.8 mEq/L (5-15); Aspartate Amino Transferase 29 U/L (17-59); Bilirubin,Total 0.5 mg/dl (0.2-1.3); Blood Urea Nitrogen 11 mg/dl (9-20); Calcium 9.3 mg/dl (8.4-10.2); Carbon Dioxide 28 mmol/L (22.0-30.0); Estimated Glomerular Filt Rate 97 ml/min (>60); GFR (African American) 117 ML/MIN (>60); Globulin 2.7 g/dL (1.3-3.2); Glucose 103 mg/dl (74-100); Magnesium 2.4 mg/dl (1.6-2.3); Total Protein,Serum 6.7 g/dl (6.3-8.2)
[2020-02-23 09:22] LABS: Triiodothryronine (T3) Uptake 36 % (23.5-40.5)
[2020-02-23 09:23] LABS: Free Thyroxine Index 2.4 ug/dL (5.93-13.13); T4 (Thyroxine) 6.6 ug/dl (5.53-11.0)
[2020-02-23 09:36] LABS: Thyroid Stimulating Hormone 1.71 uIU/mL (0.465-4.68)
== END ==
PROVIDERS: Visit Provider Internal Medicine Adolescent Medicine
DX: G44.52 New daily persistent headache (NDPH) (principal); R42 Dizziness and giddiness; R53.1 Weakness
CPT/HCPCS: 36415; 80053; 82533; 83735; 84436; 84443; 84479; 85025

== ENCOUNTER → 2020-03-11 09:28 | Outpatient (POV) | payer MEDICARE, BC, SELFPAY | PROVIDERS: Visit Provider Nurse Practitioner Family | DX: Z00.00 Encounter for general adult medical examination without abnormal findings (principal) ==

== ENCOUNTER → 2020-04-26 11:10 | Outpatient (CLI) | payer MEDICARE, BC, SELFPAY ==
--- NOTE | 2020-04-26 11:16 | XR_ITS ---
PROCEDURE: XR MULTIPLE SPINE 6+V CLINICAL INDICATION: LOW BACK PAIN Chronic back pain COMPARISON: No exams were available for comparison FINDINGS: Thoracic spine: Minimal thoracic curvature convex left. Mild degenerative disc disease in the midthoracic spine. Small bridging osteophytes are present on the right at T10-T11. No acute fracture or dislocation. No lytic or blastic change. Lumbar spine: Normal alignment. No fracture or dislocation. The disc spaces are well preserved. Incidental vascular calcifications are noted. IMPRESSION: Mild degenerative changes thoracic spine otherwise negative Dictated by: Bipin Cruz MD 04/26/2020 12:00 Bipin Cruz MD in [facility] 04/26/2020 12:00
== END ==
PROVIDERS: PCP Internal Medicine Adolescent Medicine; Visit Provider Internal Medicine Adolescent Medicine
DX: M54.5 Low back pain (principal)
CPT/HCPCS: 72084

== ENCOUNTER → 2020-05-02 07:12 | Outpatient (CLI) | payer MEDICARE, BC, SELFPAY ==
--- NOTE | 2020-05-02 07:15 | CT_ITS ---
PROCEDURE: CT LUMBAR SPINE WO CON CLINICAL HISTORY: LOW BACK PAIN lbp radiating down both legs x 6 months COMPARISON: CR XR MULTIPLE SPINE 6+V from 04/26/2020 TECHNIQUE: Axial images obtained with sagittal and coronal reformats. All CT scans at the facility use one or more dose reduction, viz: automated exposure control, ma/kV adjustment per patient size (including targeted exams where dose is matched to indication, i.e. head), or iterative reconstruction technique. FINDINGS: There is normal alignment. No acute fracture or dislocation evident. There is a subtle area of decreased attenuation in the right aspect of the L3 vertebral body measuring approximately 1 cm. This is nonspecific and could be due to small lipoma/hemangioma. L3-L4: Mild bulging disc. L4-5: Minimal bulging disc slightly eccentric toward the left with mild facet and ligamentum hypertrophy L5-S1: Minimal bulging disc. No fracture or dislocation. Incidental calcification noted within the aorta IMPRESSION: 1. There is a subtle area of decreased attenuation in the right aspect of the L3 vertebral body measuring approximately 1 cm. This is nonspecific and could be due to small lipoma/hemangioma. MRI may provide further characterisation if clinically desired. 2. Minimal bulging disc at L3-L4 L4-5 and L5-S1 as described above. 3. No bony canal stenosis or fracture or malalignment Dictated by: Bipin Cruz MD 05/03/2020 06:20 Bipin Cruz MD in [facility] 05/03/2020 06:20
== END ==
PROVIDERS: PCP Internal Medicine Adolescent Medicine; Visit Provider Internal Medicine Adolescent Medicine
DX: M54.5 Low back pain (principal)
CPT/HCPCS: 72131

== ENCOUNTER → 2020-05-31 07:01 | Outpatient (CLI) | payer MEDICARE, BC, SELFPAY ==
[2020-05-31 09:53] LABS: Blood Urea Nitrogen 15 mg/dl (9-20); Estimated Glomerular Filt Rate 84 ml/min (>60); GFR (African American) 102 ML/MIN (>60)
[2020-05-31 10:10] LABS: 25-OH Vitamin D, Total 35.9 ng/mL (30-100)
[2020-05-31 10:24] LABS: Thyroid Stimulating Hormone 1.19 uIU/mL (0.465-4.68)
[2020-05-31 12:28] LABS: Magnesium 2.1 mg/dl (1.6-2.3)
[2020-05-31 13:35] LABS: Vitamin B12 355 pg/mL (239-931)
[2020-05-31 14:25] LABS: Folate 8.26 ng/mL
[2020-06-03 14:28] LABS: Albumin 4.1 g/dL (2.9-4.4); Alpha-1-Globulin 0.2 g/dL (0.0-0.4); Alpha-2-Globulin 0.7 g/dL (0.4-1.0); Gamma Globulin 0.9 g/dL (0.4-1.8); Protein, Total 6.8 g/dL (6.0-8.5)
[2020-06-05 10:27] LABS: Vitamin B1 120.9 nmol/L (66.5-200.0)
[2020-06-06 18:46] LABS: Methylmalonic Acid 105 nmol/L (0-378)
== END ==
PROVIDERS: Visit Provider Student in an Organized Health Care Education/Training Program
DX: R53.1 Weakness (principal); R51.9 Headache, unspecified
CPT/HCPCS: 36415; 82131; 82306; 82565; 82607; 82746; 83735; 84155; 84165; 84425; 84443; 84520

== ENCOUNTER → 2020-06-07 08:29 | Outpatient (CLI) | payer MEDICARE, BC, SELFPAY ==
--- NOTE | 2020-06-07 08:34 | MR_ITS ---
PROCEDURE: MR CERVICAL SPINE WO/W CON CLINICAL INDICATION: CHRONIC NECK PAIN NECK PAIN, DIZZINESS, STIFF NECK X2 YEARS. NO SURGERY 16 ML Cursa.me LOT:[id number] EXP:JUN 2022 COMPARISON: No exams were available for comparison TECHNIQUE: Standard multiplanar multiecho sequences are performed without contrast. 3-D MIP and myelographic images are also rendered and reviewed FINDINGS: There is normal alignment. The craniocervical junction has an unremarkable appearance. C2-C3: Unremarkable. C3-C4: There is mild right-sided foraminal narrowing from facet and uncovertebral hypertrophy. C4-C5: Mild degenerative disc disease. There is a small central disc protrusion versus prominent posterior longitudinal ligament with narrowing of the canal at this level without cord impingement. C5-C6: Mild degenerative disc disease with mild bilateral foraminal narrowing. C6-C7: Unremarkable. C7-T1: Unremarkable. IMPRESSION: Mild cervical spondylosis. Please see above for detailed description at each level. No extruded herniated disc apparent. Dictated by: Bipin Cruz MD 06/09/2020 11:48 Bipin Cruz MD in [facility] 06/09/2020 11:48
== END ==
PROVIDERS: PCP Internal Medicine Adolescent Medicine; Visit Provider Psychiatry & Neurology Clinical Neurophysiology
DX: M54.2 Cervicalgia (principal)
CPT/HCPCS: 72156; 76376; A9576

== ENCOUNTER → 2020-09-09 12:01 | Outpatient (CLI) | payer MEDICARE, BC, SELFPAY ==
[2020-09-09 12:43] LABS: Basophils # 0.1 K/mm3 (0-0.2); Basophils % 0.8 % (0.1-2.0); Eosinophils # 0.1 K/mm3 (0.0-0.4); Hematocrit 50.6 % (42.0-52.0); Hemoglobin 16.8 g/dL (14.1-18.0); Lymphocytes # 1.1 K/mm3 (0.7-4.5); Lymphocytes % 17.1 % (10-50); Mean Corpuscular HGB Conc 33.2 g/dL (31.8-35.4); Mean Corpuscular Hemoglobin 31.4 pg (27.0-31.2); Mean Corpuscular Volume 94.6 fl (80-94); Mean Platelet Volume 8.5 fl (7.4-10.4); Monocytes # 0.3 K/mm3 (0.1-1.0); Monocytes % 5.6 % (1.7-9.3); Neutrophils # 4.6 K/mm3 (1.8-7.8); Neutrophils % 74.6 % (37.0-80.0); Platelet Count 282 K/mm3 (142-424); Red Blood Count 5.35 M/mm3 (4.60-6.20); Red Cell Distribution Width 13.1 % (11.5-17.5); White Blood Count 6.2 K/mm3 (4.8-10.8)
[2020-09-09 13:08] LABS: Chloride 103 mmol/L (98-107); Potassium 4.8 mmoL/L (3.5-5.1); Sodium 135 mmol/L (136-145)
[2020-09-09 13:10] LABS: Alanine Aminotransferase 21 U/L (12-78); Aspartate Amino Transferase 27 U/L (17-59); Blood Urea Nitrogen 12 mg/dl (9-20); Estimated Glomerular Filt Rate 97 ml/min (>60); GFR (African American) 117 ML/MIN (>60)
[2020-09-09 13:11] LABS: Albumin Level 4.8 g/dl (3.5-5.0); Albumin/Globulin Ratio 1.8 (1.1-1.8); Alkaline Phosphatase 73 U/L (38-126); Anion Gap 10.8 mEq/L (5-15); Bilirubin,Total 0.8 mg/dl (0.2-1.3); Calcium 9.6 mg/dl (8.4-10.2); Carbon Dioxide 26 mmol/L (22.0-30.0); Globulin 2.7 g/dL (1.3-3.2); Glucose 88 mg/dl (74-100); Magnesium 2.2 mg/dl (1.6-2.3); Total Protein,Serum 7.5 g/dl (6.3-8.2)
[2020-09-09 13:27] LABS: Free Thyroxine Index 3.1 ug/dL (5.93-13.13); T4 (Thyroxine) 9.1 ug/dl (5.53-11.0); Triiodothryronine (T3) Uptake 34 % (23.5-40.5)
[2020-09-09 13:41] LABS: Thyroid Stimulating Hormone 1.05 uIU/mL (0.465-4.68)
== END ==
PROVIDERS: Visit Provider Internal Medicine Adolescent Medicine
DX: R53.83 Other fatigue (principal); R53.81 Other malaise
CPT/HCPCS: 36415; 80053; 83735; 84436; 84443; 84479; 85025

== ENCOUNTER → 2020-11-30 07:34 | Outpatient (CLI) | payer MEDICARE, BC, SELFPAY ==
[2020-11-30 11:54] LABS: Prostate Specific Ag Screen 4.1 ng/ml (0.0-4.0)
== END ==
PROVIDERS: Visit Provider Urology
DX: Z12.5 Encounter for screening for malignant neoplasm of prostate (principal)
CPT/HCPCS: G0103

== ENCOUNTER → 2021-03-04 09:38 | Outpatient (POV) | payer MEDICARE, BC, SELFPAY | PROVIDERS: Visit Provider Dermatology | DX: Z00.00 Encounter for general adult medical examination without abnormal findings (principal) ==

== ENCOUNTER → 2021-04-17 06:59 | Outpatient (CLI) | payer MEDICARE, BC, SELFPAY ==
[2021-04-17 07:49] LABS: Basophils # 0.1 K/mm3 (0-0.2); Basophils % 1.2 % (0.1-2.0); Eosinophils # 0.2 K/mm3 (0.0-0.4); Eosinophils % 2.5 % (0.1-12.0); Hematocrit 53.5 % (42.0-52.0); Hemoglobin 17.5 g/dL (14.1-18.0); Lymphocytes # 1.1 K/mm3 (0.7-4.5); Lymphocytes % 18.7 % (10-50); Mean Corpuscular HGB Conc 32.8 g/dL (31.8-35.4); Mean Corpuscular Hemoglobin 31.2 pg (27.0-31.2); Mean Corpuscular Volume 95.2 fl (80-94); Mean Platelet Volume 7.9 fl (7.4-10.4); Monocytes # 0.4 K/mm3 (0.1-1.0); Monocytes % 5.9 % (1.7-9.3); Neutrophils # 4.3 K/mm3 (1.8-7.8); Neutrophils % 71.6 % (37.0-80.0); Platelet Count 318 K/mm3 (142-424); Red Blood Count 5.62 M/mm3 (4.60-6.20); Red Cell Distribution Width 13.2 % (11.5-17.5)
[2021-04-17 08:00] LABS: Chloride 97 mmol/L (98-107); Potassium 4.8 mmoL/L (3.5-5.1); Sodium 134 mmol/L (136-145)
[2021-04-17 08:03] LABS: Anion Gap 11.8 mEq/L (5-15); Blood Urea Nitrogen 6 mg/dl (9-20); Carbon Dioxide 30 mmol/L (22.0-30.0); Estimated Glomerular Filt Rate 134 ml/min (>60); GFR (African American) 163 ML/MIN (>60)
[2021-04-17 08:04] LABS: Calcium 9.7 mg/dl (8.4-10.2); Glucose 106 mg/dl (74-100)
== END ==
PROVIDERS: Visit Provider Internal Medicine Adolescent Medicine
DX: R06.09 Other forms of dyspnea (principal)
CPT/HCPCS: 36415; 80048; 85025

== ENCOUNTER → 2021-04-18 13:27 | Outpatient (CLI) | payer MEDICARE, BC, SELFPAY ==
--- NOTE | 2021-04-18 13:34 | CT_ITS ---
PROCEDURE: CT ANGIO CHEST PE PROTOCOL CLINCIAL INDICATION: OTHER FORM OF DYSPNEA COMPARISON: No exams were available for comparison TECHNIQUE: IV Contrast: 70ML Isovue 370 Axial images obtained with sagittal and coronal reformats. All CT scans at the facility use one or more dose reduction, viz: automated exposure control, ma/kV adjustment per patient size (including targeted exams where dose is matched to indication, i.e. head), or iterative reconstruction technique. FINDINGS: HEART AND MEDIASTINAL STRUCTURES: There is excellent vascular opacification. Cardiac size is normal. There is no CT evidence of pulmonary emboli. There is no evidence of aortic dissection. There is moderate coronary artery calcification especially LAD. LUNGS AND PLEURAL SPACES: The lung palomares are well-expanded and appear clear of infiltrate. There is minimal scarring or atelectasis right posterior gutter and left costophrenic angle. BONY STRUCTURES: No acute bony abnormalities apparent, there minor degenerate changes of the thoracic spine noted UPPER ABDOMEN: Unremarkable. ADDITIONAL FINDINGS: No other significant abnormalities. IMPRESSION: Negative for PE, minimal bilateral basilar atelectasis or scarring Dictated by: Dr. Omar Rodrigues MD 04/18/2021 14:22 Dr. Omar Rodrigues MD in [facility] 04/18/2021 14:22
--- NOTE | 2021-04-18 14:44 | PC.NURSE ---
PFT completed without incident, Albuterol 0.083% given, per protocol, Pt tolerated tx well.
== END ==
PROVIDERS: PCP Internal Medicine Adolescent Medicine; Visit Provider Internal Medicine Adolescent Medicine
DX: R06.09 Other forms of dyspnea (principal)
CPT/HCPCS: 71275; 94060; 94727; 94729

== ENCOUNTER → 2021-04-29 06:55 | Outpatient (CLI) | payer MEDICARE, BC, SELFPAY ==
[2021-04-29 08:26] LABS: 25-OH Vitamin D, Total 38.8 ng/mL (30-100); Free Thyroxine Index 2.6 ug/dL (5.93-13.13); T4 (Thyroxine) 6.8 ug/dl (5.53-11.0); Triiodothryronine (T3) Uptake 38 % (23.5-40.5)
[2021-04-29 08:37] LABS: Hemoglobin A1C 4.8 % (4.0-6.0)
[2021-04-29 08:39] LABS: Thyroid Stimulating Hormone 1.41 uIU/mL (0.465-4.68)
[2021-04-29 08:59] LABS: Vitamin B12 283 pg/mL (239-931)
[2021-04-30 16:13] LABS: Treponema pallidum Ab (FTA-ABS Non Reactive (Non Reactive)
[2021-05-01 14:12] LABS: AChR Binding Abs <0.03 nmol/L (0.00-0.24)
[2021-05-02 15:10] LABS: AChR Blocking Abs 18 % (0-25)
== END ==
PROVIDERS: Visit Provider Internal Medicine Adolescent Medicine
DX: G57.93 Unspecified mononeuropathy of bilateral lower limbs (principal); H81.90 Unspecified disorder of vestibular function, unspecified ear; Z79.899 Other long term (current) drug therapy
CPT/HCPCS: 36415; 82306; 82525; 82607; 83036; 84238; 84436; 84443; 84479; 86780

== ENCOUNTER → 2021-08-14 14:45 | Outpatient (CLI) | payer MEDICARE, BC, SELFPAY ==
--- NOTE | 2021-08-14 14:55 | CA_ITS ---
FINAL REPORT TECHNIQUE: Right lower extremity venous duplex was performed with augmentation and compression. CLINICAL HISTORY: Rt ankle swelling post 15hour car trip. FINDINGS: Proper flow is seen throughout the deep venous system. There is no evidence of deep venous thrombosis. IMPRESSION: no deep venous thrombosis. Reviewed, Interpreted and Dictated by Kirit Davis MD Transcribed by Kacie Paredes Authenticated by Kirit Davis MD on 08/14/2021 03:58:43 PM [facility]
== END ==
PROVIDERS: PCP Internal Medicine Adolescent Medicine; Visit Provider Internal Medicine Adolescent Medicine
DX: R60.0 Localized edema (principal)
CPT/HCPCS: 93971

== ENCOUNTER → 2021-11-04 13:09 | Outpatient (POV) | payer MEDICARE, BC, SELFPAY | PROVIDERS: Visit Provider Dermatology | DX: Z00.00 Encounter for general adult medical examination without abnormal findings (principal) ==

== ENCOUNTER → 2021-11-13 06:59 | Outpatient (CLI) | payer MEDICARE, BC, SELFPAY ==
--- NOTE | 2021-11-13 07:04 | XR_ITS ---
FINAL REPORT CLINICAL HISTORY: Right ankle pain..swelling FINDINGS: AP, oblique, and lateral views of the right ankle were obtained. There is no prior exam for comparison. There is no fracture or dislocation. The ankle mortise is intact. Soft tissues are normal. IMPRESSION: No acute osseous abnormality of the right ankle. Reviewed, Interpreted and Dictated by Marybel Montenegro MD Transcribed by Maisha Nicolas Authenticated by Marybel Montenegro MD on 11/13/2021 09:00:46 AM [facility]
== END ==
PROVIDERS: PCP Internal Medicine Adolescent Medicine; Visit Provider Podiatrist
DX: R60.0 Localized edema (principal); M25.571 Pain in right ankle and joints of right foot
CPT/HCPCS: 73610

== ENCOUNTER → 2022-04-10 09:47 | Outpatient (CLI) | payer MEDICARE, BC, SELFPAY ==
--- NOTE | 2022-04-10 09:47 | MR_ITS ---
FINAL REPORT CLINICAL HISTORY: pain. pain in 2nd toe. no injury or trauma. 2ndd toe lays over great toe x8 months. 16ml prohance given. FINDINGS: Multiplanar MR imaging of the right foot was performed with and without contrast. There are mild degenerative changes without bone marrow edema. No bony mass is identified. The musculature is intact. No soft tissue mass or cyst is identified. There is contrast enhancement of soft tissue surrounding the distal 2nd metatarsal and 2nd MTP of uncertain etiology but could represent inflammatory soft tissue. Otherwise common now well-defined mass or cyst is present. IMPRESSION: No acute bony abnormality. Contrast enhancement of soft tissue surrounding the distal 2nd metatarsal and MTP of uncertain etiology which could represent inflammatory soft tissue. Reviewed, Interpreted and Dictated by Westley López III, MD Transcribed by Prachi Gonzalez Authenticated and [facility]
[2022-04-10 10:38] LABS: Blood Urea Nitrogen 8 mg/dl (9-20); Estimated Glomerular Filt Rate 96 ml/min (>60); GFR (African American) 116 ML/MIN (>60)
== END ==
PROVIDERS: PCP Internal Medicine Adolescent Medicine; Visit Provider Podiatrist
DX: S99.921A Unspecified injury of right foot, initial encounter (principal); M79.671 Pain in right foot
CPT/HCPCS: 36415; 73720; 82565; 84520; A9576

== ENCOUNTER → 2022-12-21 10:55 | Outpatient (CLI) | payer MEDICARE, BC, SELFPAY ==
--- NOTE | 2022-12-21 10:59 | MR_ITS ---
FINAL REPORT CLINICAL HISTORY: PARKINSON S DISEASE, DIZZINESS. HEADACHE COMPARISON: 02/22/2020 FINDINGS: Multiplanar MR imaging of the brain was performed without contrast. There is age-appropriate atrophy and mild chronic ischemic/gliotic change which is somewhat progressed from prior exam.. There is no evidence of intracranial hemorrhage or mass. The ventricular size is normal. There is no evidence of shift of the midline structures. No area of restricted diffusion is identified. The posterior fossa and brainstem have an unremarkable appearance. Normal major vessel vascular flow voids are seen. IMPRESSION: Unremarkable brain with no focal abnormality identified. Age-appropriate atrophy and mild chronic ischemic/gliotic change, somewhat progressed from prior exam. Reviewed, Interpreted and Dictated by Westley López III, MD Transcribed by Prachi Gonzalez Authenticated and [facility]
== END ==
PROVIDERS: PCP Internal Medicine Adolescent Medicine; Visit Provider Internal Medicine Adolescent Medicine
DX: G20 Parkinson's disease (principal); R42 Dizziness and giddiness; G31.84 Mild cognitive impairment of uncertain or unknown etiology
CPT/HCPCS: 70551

== ENCOUNTER → 2023-03-10 15:00 | Outpatient (CLI) | payer MEDICARE, BC, SELFPAY ==
--- NOTE | 2023-03-10 15:07 | XR_ITS ---
FINAL REPORT CLINICAL HISTORY: PAIN IN LEFT SHOULDER COMPARISON: None FINDINGS: LEFT SHOULDER 3 views of the left shoulder were obtained. There is no acute fracture or dislocation. Visualized joint spaces are normally aligned. Joint spaces are preserved. Soft tissues are unremarkable. IMPRESSION: No acute bony abnormality. Reviewed, Interpreted and Dictated by Kirit Davis MD Transcribed by Aida Medrano Authenticated and [facility]
== END ==
PROVIDERS: PCP Internal Medicine Adolescent Medicine; Visit Provider Internal Medicine Adolescent Medicine
DX: M25.512 Pain in left shoulder (principal); G89.29 Other chronic pain
CPT/HCPCS: 73030

== ENCOUNTER 2023-07-12 11:03 | Outpatient (CLI) | payer MEDICARE, BC, SELFPAY ==
[2023-07-12 11:11] VITALS: BMI 22.9
[2023-07-12] MEDS: LACTATED RINGERS 1000ML 500 ML 999 ML IV (11:16)
[2023-07-12 11:38] VITALS: BP 98/54; PULSE 64; RESP 16; TEMP 36.3; O2SAT 97
[2023-07-12 11:40] LABS: Chloride 102 mmol/L (98-107); Potassium 4.1 mmoL/L (3.5-5.1); Sodium 137 mmol/L (136-145)
[2023-07-12 11:42] LABS: Blood Urea Nitrogen 11 mg/dl (9-20); Creatinine Clearance Estimated 72 mL/min (50-200); Estimated Glomerular Filt Rate 112 ml/min (>60); GFR (African American) 135 ML/MIN (>60)
[2023-07-12 11:43] LABS: Alanine Aminotransferase 9 U/L (12-78); Albumin Level 3.9 g/dl (3.5-5.0); Albumin/Globulin Ratio 1.4 (1.1-1.8); Alkaline Phosphatase 76 U/L (38-126); Anion Gap 7.1 mEq/L (5-15); Aspartate Amino Transferase 27 U/L (17-59); Basophils % 0.7 % (0.1-2.0); Bilirubin,Total 0.7 mg/dl (0.2-1.3); Calcium 8.5 mg/dl (8.4-10.2); Carbon Dioxide 32 mmol/L (22.0-30.0); Eosinophils # 0.2 K/mm3 (0.0-0.4); Eosinophils % 2.4 % (0.1-12.0); Globulin 2.7 g/dL (1.3-3.2); Glucose 86 mg/dl (74-100); Hemoglobin 14.7 g/dL (14.1-18.0); Lymphocytes # 1.5 K/mm3 (0.7-4.5); Lymphocytes % 24.2 % (10-50); Magnesium 1.9 mg/dl (1.6-2.3); Mean Corpuscular HGB Conc 32.6 g/dL (31.8-35.4); Mean Corpuscular Volume 92.3 fl (80-94); Mean Platelet Volume 7.7 fl (7.4-10.4); Monocytes # 0.4 K/mm3 (0.1-1.0); Monocytes % 5.6 % (1.7-9.3); Neutrophils # 4.3 K/mm3 (1.8-7.8); Neutrophils % 67.1 % (37.0-80.0); Platelet Count 272 K/mm3 (142-424); Red Blood Count 4.88 M/mm3 (4.60-6.20); Red Cell Distribution Width 13.4 % (11.5-17.5); Total Protein,Serum 6.6 g/dl (6.3-8.2); White Blood Count 6.4 K/mm3 (4.8-10.8)
[2023-07-12 12:00] VITALS: BP 149/67; PULSE 47; RESP 16; O2SAT 100
[2023-07-12 12:05] VITALS: BP 141/54; PULSE 53; RESP 16; O2SAT 100
[2023-07-12 12:10] VITALS: BP 142/70; PULSE 58; RESP 17; O2SAT 100
[2023-07-12 12:30] VITALS: BP 141/74; PULSE 53; RESP 16; O2SAT 100
== END 2023-07-12 12:35 | disposition home or self-care (01) ==
LOC: INF 11:05
PROVIDERS: PCP Internal Medicine Adolescent Medicine; Visit Provider Internal Medicine Adolescent Medicine
DX: I95.0 Idiopathic hypotension (principal); E86.0 Dehydration
CPT/HCPCS: 80053; 82533; 83735; 85025; 96360

== ENCOUNTER 2023-08-16 16:34 | Outpatient (CLI) | payer MEDICARE, BC, SELFPAY ==
--- NOTE | 2023-08-16 16:43 | XR_ITS ---
PROCEDURE INFORMATION: Exam: XR Right Femur Exam date and time: 08/16/2023 4:46 PM Age: 68 years old Clinical indication: Pain; Hip; Right; Additional info: Right hip pain x 1 month TECHNIQUE: Imaging protocol: Radiologic exam of the right femur. Views: 2 views. COMPARISON: CA VENOUS DOPPLER LE RT 08/14/2021 2:59 PM FINDINGS: Bones/joints: No visible fracture or dislocation. Soft tissues: Unremarkable. IMPRESSION: No visible fracture or dislocation.
== END 2023-08-16 23:59 ==
PROVIDERS: PCP Internal Medicine Adolescent Medicine; Visit Provider Internal Medicine Adolescent Medicine
DX: M25.551 Pain in right hip (principal)
CPT/HCPCS: 73552

== ENCOUNTER 2023-11-25 11:00 | Outpatient (RCR) | payer MEDICARE, BC, SELFPAY | END 2023-11-25 12:00 | disposition home or self-care (01) | LOC: PT 11:00 | PROVIDERS: PCP Internal Medicine Adolescent Medicine; Visit Provider Orthopaedic Surgery | DX: R26.89 Other abnormalities of gait and mobility (principal); Z89.421 Acquired absence of other right toe(s); G20.A1 Parkinson's disease without dyskinesia, without mention of fluctuations; Z09 Encounter for follow-up examination after completed treatment for conditions other than malignant neoplasm | CPT/HCPCS: 97010; 97110; 97112; 97140; 97163; 97164 ==

== ENCOUNTER 2024-01-18 10:29 | Outpatient (POV) | payer MEDICARE, BC, SELFPAY | END 2024-01-18 23:59 | disposition home or self-care (01) | LOC: SC 10:29 | PROVIDERS: PCP Internal Medicine Adolescent Medicine; Visit Provider Dermatology | DX: Z00.00 Encounter for general adult medical examination without abnormal findings (principal) ==

== ENCOUNTER 2024-03-21 10:00 | Outpatient (RCR) | payer MEDICARE, BC, SELFPAY | END 2024-03-21 23:59 | disposition home or self-care (01) | LOC: OT 10:00 | PROVIDERS: Visit Provider Orthopaedic Surgery | DX: M75.02 Adhesive capsulitis of left shoulder (principal) | CPT/HCPCS: 97010; 97014; 97110; 97140; 97164; 97165; 97530; G0283 ==

== ENCOUNTER 2024-07-06 12:32 | Day surgery (SDC) | payer MEDICARE, BC, SELFPAY ==
[2024-07-04 13:28] VITALS: BMI 22.9
[2024-07-06 13:11] VITALS: BP 142/81; PULSE 77; RESP 18; TEMP 36.6; O2SAT 99
[2024-07-06] MEDS: LACTATED RINGERS 1000ML 1,000 ML 25 ML IV (13:18)
--- NOTE | 2024-07-06 14:19 | P.PNANES_ITS ---
[facility] Disclaimer: The information contained in this section may have been updated after the patient was seen, as this information can be updated by other users. Medical History Shortness of breath on exertion Parkinson disease Amputated toe of right foot Plantar fasciitis, bilateral Callus Coronary artery calcification seen on CT scan Decreased stamina Fatigue Pulmonary HTN Dyspnea Surgical History H/O cataract extraction Family History Other No significant family history Social History Smoking Status: Former smoker alcohol intake: current alcohol intake frequency: 0-2 drinks per day substance use type: denies use current occupational status: retired Travel in the last 8 weeks: None household members: spouse housing: house current occupation: dentist current occupational exposures/hazards: No caffeine: Yes Have you lived/traveled outside [place] in past 30 days?: No Contact w/someone who lives/traveled outside US past 30 days?: No Exposure to someone with infectious disease in past 14 days?: No Do you have a fever (greater than 100.4 F or 38 C)?: No Have you tested positive for COVID-19: No Exposed to someone with COVID-19 in past 14 days?: No Do you have a sore throat?: No Do you have a cough?: No Do you have any weakness?: No Do you have any diarrhea?: No Are you experiencing any unusual bleeding?: No Do you have any muscle aches/pain?: No Do you have any abdominal pain?: No Are you experiencing loss of taste or smell?: No [facility] Anesthesia Checklist Patient Identification Patient Identification: Arm Band Structural Data Admitted From: Home Planned Operative Procedure/s: Colonoscopy Consent for Planned Operative Procedure(s) Verified: Yes Verified Documents: Surgical Consent and History and Physical NPO Status Verified Time NPO: 00:00 Additional verifications Anesthesia Reactions: No Airway Assessment Mallampati Score:: Class II C-Spine Mobility Assessed: Yes TMJ Mobility Assessed: Yes Dentition: Good Dentition Neurological Assessment Level of Consciousness: Awake, Alert and Appropriate Anesthesia Plan Anesthesia Risk discussed: Yes Anesthesia Plan: Verified ASA Class: III Anesthesia Type: MAC
--- NOTE | 2024-07-06 14:26 | EXP.HP ---
History of Present Illness *Admission Date: 07/06/24 *Reason for visit:: Diarrhea/urgency *History of present illness: Mr. Coats is a 69-year-old gentleman with change in bowel habits with diarrhea and urgency. He does have irregular bowel function. His sister had colon cancer diagnosed at the age of 70. The patient did have a colonoscopy in March 2019 and had a single polyp (hyperplastic polyp removed and evidence of lymphocytic colitis. He is here for diagnostic colonoscopy. The examination is deemed medically necessary for colonoscopy. The patient has been seen, interviewed and examined prior to the procedure by both myself and the anesthesia provider. [facility] Disclaimer: The information contained in this section may have been updated after the patient was seen, as this information can be updated by other users. Medical History (Updated 07/06/24 @ 14:29 by Nathaniel Freitas II, MD) Shortness of breath on exertion Parkinson disease Amputated toe of right foot Plantar fasciitis, bilateral Callus Coronary artery calcification seen on CT scan Decreased stamina Fatigue Pulmonary HTN Dyspnea Surgical History H/O cataract extraction Family History Other No significant family history Social History Smoking Status: Former smoker alcohol intake: current alcohol intake frequency: 0-2 drinks per day substance use type: denies use current occupational status: retired Travel in the last 8 weeks: None household members: spouse housing: house current occupation: dentist current occupational exposures/hazards: No caffeine: Yes Have you lived/traveled outside US in past 30 days?: No Contact w/someone who lives/traveled outside US past 30 days?: No Exposure to someone with infectious disease in past 14 days?: No Do you have a fever (greater than 100.4 F or 38 C)?: No Have you tested positive for COVID-19: No Exposed to someone with COVID-19 in past 14 days?: No Do you have a sore throat?: No Do you have a cough?: No Do you have any weakness?: No Do you have any diarrhea?: No Are you experiencing any unusual bleeding?: No Do you have any muscle aches/pain?: No Do you have any abdominal pain?: No Are you experiencing loss of taste or smell?: No Other Medical History Have you received the Flu Vaccine for this season: Yes Have you received the Pneumonia Vaccine: Yes Review of Systems Review of Systems Review of systems (narrative): Negative *Cardiovascular Comments: Negative *Gastrointestinal Comments: Negative *Genitourinary Comments: Negative *Musculoskeletal Comments: Negative *Neurologic Comments: Negative Meds Home Medications and Allergies Home Medications ?Medication ?Instructions ?Recorded ?Confirmed ?Type hyoscyamine sulfate 0.125 mg 0.125 mg PO DAILY 02/27/20 07/04/24 History sublingual tablet carbidopa 25 mg-levodopa 100 mg 1 tab PO TID 12/08/21 07/04/24 History tablet donepezil 10 mg tablet 5 mg PO DAILY 04/18/24 07/04/24 History midodrine 5 mg tablet 5 mg PO BID 04/18/24 07/04/24 History thiamine HCl (vitamin B1) 100 mg 100 mg PO DAILY 04/18/24 07/04/24 History tablet sodium,potassium,mag sulfates 17.5 See Rx Instructions PO .COMPLEX 06/27/24 07/04/24 Rx gram-3.13 gram-1.6 gram oral soln #354 mL (Suprep Bowel Prep Kit) fludrocortisone 0.1 mg tablet 0.1 mg PO DAILY 07/04/24 07/04/24 History New Prescriptions to Start Prescriptions: Allergies Allergy/AdvReac Type Severity Reaction Status Date / Time ciprofloxacin Allergy Intermediate hives Verified 07/06/24 13:11 Penicillins Allergy Unknown Unknown Verified 07/06/24 13:11 allergy reaction Sulfa (Sulfonamide Allergy Unknown Unknown Verified 07/06/24 13:11 Antibiotics) allergy reaction Exam Data for Last 24 hours Vital signs and Labs for Last 24 Hours: Temp Pulse Resp BP Pulse Ox O2 Del Method 97.8 F 77 18 142/81 H 99 Room Air 07/06/24 13:11 07/06/24 13:11 07/06/24 13:11 07/06/24 13:11 07/06/24 13:11 07/06/24 13:11 I & O for Last 24 hours: Intake & Output 07/03/24 07/04/24 07/05/24 07/06/24 23:59 23:59 23:59 23:59 Weight 160 lb *Routine HEENT Exam Head: Present normocephalic Eye: Present EOMI and PERRL ENT: Present mucous membranes moist *Routine Neck Exam Neck: Present supple *Routine Respiratory Exam Respiratory: Present CTA bilaterally *Routine Cardiovascular Exam Cardiovascular: Present RRR *Routine Abdominal Exam Abdominal: Present soft and normoactive bowel sounds; Absent tenderness *Routine Rectal Exam Rectal:: deferred *Routine Genitalia Exam Genitalia:: deferred *Routine Extremities Exam Extremities: Absent cyanosis, clubbing or edema *Routine Skin Exam Skin: Present warm; Absent rash *Routine Neurological Exam Neurological: Present alert and oriented X3 Assessment and Plan *Assessment and plan (1) Diarrhea: Status: Acute Category: Medical Code(s): R19.7 - Diarrhea, unspecified (2) Fecal soiling: Status: Acute Category: Medical Code(s): R15.1 - Fecal smearing (3) Fecal urgency: Status: Acute Category: Medical Code(s): R15.2 - Fecal urgency (4) Family history of colon cancer: Status: Acute Category: Medical Code(s): Z80.0 - Family history of malignant neoplasm of digestive organs Plan A/P: 1. Diarrhea with urgency and intermittent fecal incontinence with family history of colon cancer is the preprocedural diagnosis. The patient will be anesthetized/sedated using MAC sedation. The patient has been seen and examined. Cardiac and lung assessment prior to the examination is stable. Proceed with planned colonoscopy
--- NOTE | 2024-07-06 14:30 | HMH.PROCNOTE ---
[facility] Procedure Note Date: 07/06/24 Time: 14:53 Procedure Note:: Colonoscopy Procedure Report: Colonoscopy with cold biopsies Endoscopist: Nathaniel Freitas II, MD Referring physician: Alban Walton M.D. Date of Procedure: July 06, 2024 Equipment: Olympus 190 variable stiffness pediatric colonoscope Sedation: MAC sedation Indication: Mr. Coats is a 69-year-old gentleman who is here for diagnostic colonoscopy secondary to bowel urgency and diarrhea. He did have an accident/fecal incontinence 3 to 4 months ago. His sister was diagnosed with colon cancer at the age of 70. The patient did have a colonoscopy in 2019 and had a single polyp (hyperplastic polyp) removed and biopsies randomly showed lymphocytic colitis. He was treated short-term. He does state that he cannot really hold onto his bowel movements as well as he used to. He reports no rectal bleeding, abdominal pain or weight loss. Procedure: Prior to the procedure, a history and physical exam was performed, and patient's medications and allergies were reviewed. The risks, benefits and alternatives of the sedation and procedure were discussed with the patient. All questions were answered and informed consent was obtained. The patient was brought to the procedure room. Patient identification and proposed procedure were verified by the physician and the nurse. The patient was placed in a left lateral decubitus position and the scope was passed under direct vision. Throughout the procedure, the patient's blood pressure, pulse, and oxygen saturations were monitored continuously. The colonoscopy was accomplished without difficulty. The patient tolerated the procedure well. Findings: On digital rectal examination there was normal rectal tone. There were no external hemorrhoids. The colonoscope was introduced through the anal canal to the rectum and advanced to the cecum. The ileocecal valve and appendiceal orifice were identified. The scope was advanced a short distance into the ileum which appeared grossly normal. The scope was then withdrawn into the colon. The cecum, ascending and transverse colon and mucosa were grossly normal. Random biopsies were taken separately x 4 in the right and separately in the left colon to rule out microscopic/lymphocytic colitis. There were scattered diverticuli throughout the colon but more predominantly in the descending and sigmoid colon (LEFT colon). There was a diminutive 3 mm polyp in the rectum removed via cold biopsy. The rectum otherwise was normal. Upon retroflexion within the rectum there were grade 2 internal hemorrhoids. The preparation was excellent throughout with [place] Preparation Score of 9. The cecal time was 14 minutes. Impression: 1. Diminutive rectal 3 mm polyp 2. Pandiverticulosis 3. Grade 2 internal hemorrhoids Plan: I will follow-up the biopsies to rule out lymphocytic colitis. If there is evidence of lymphocytic colitis, I would initiate budesonide x 3 months or as maintenance therapy. If the biopsies do not show lymphocytic colitis, I would urge fiber bulk and may consider adding colestipol.
[2024-07-06 14:37] VITALS: O2SAT 100
[2024-07-06 14:59] VITALS: BP 139/69; PULSE 62; RESP 16; O2SAT 99
[2024-07-06 15:09] VITALS: BP 137/94; PULSE 63; RESP 16; O2SAT 99
[2024-07-06 15:19] VITALS: BP 165/75; PULSE 58; RESP 16; O2SAT 98
--- NOTE | 2024-07-06 15:28 | SUR.PHASEII ---
Dr Freitas at the bedside. Pt denies pain/nausea. no needs at this time
[2024-07-06 15:29] VITALS: BP 161/80; PULSE 57; RESP 16; O2SAT 99
== END 2024-07-06 15:40 | disposition home or self-care (01) ==
PROVIDERS: PCP Internal Medicine Adolescent Medicine; Visit Provider Internal Medicine Gastroenterology
PROC: (CPT 45380; principal; 2024-07-06 14:00)
DX: R19.7 Diarrhea, unspecified (principal); R15.1 Fecal smearing; R15.2 Fecal urgency; Z80.0 Family history of malignant neoplasm of digestive organs; Z86.0100 Personal history of colon polyps, unspecified; K63.5 Polyp of colon; K57.30 Diverticulosis of large intestine without perforation or abscess without bleeding; K64.1 Second degree hemorrhoids
CPT/HCPCS: 45380; J7120

== ENCOUNTER 2024-07-19 09:00 | Outpatient (RCR) | payer MEDICARE, BC, SELFPAY ==
--- NOTE | 2024-07-12 15:14 | HMH.PTOPEV ---
PT Outpatient Evaluation Rehab PT Outpatient Evaluation Start: 07/12/24 09:59 Freq: Status: Active Protocol: Document 07/12/24 09:59 JOHNZOHRA (Rec: 07/12/24 15:14 MATEO [id number]) E-signed By Little Erickson, PT Outpatient Therapy Subjective History Subjective History Pt is a 69 y/o male who presents to the initial PT evaluation for Parkinson's disease and dizziness. Pt reports he was diagnosed with Parkinson's disease ~2 years ago and has been taking Carbidopa/Levodopa 6x/day with noted improvements in symptoms. Pt reports symptoms of decreased stamina, gait speed and new onset of RUE tremor when strained or cold that improves pressure. Pt also reports he has been dealing with hypotension for ~ 4-5 months, states he was placed on multiple different medications and has found one that helps regulate his blood pressure that he started taking ~4 months ago. Pt reports main complaint of feeling unsteady with activities such as changing positions, prolonged standing, bending over in standing, quick movements, and turning his head when walking. Pt reports dizziness is brief in nature lasting ~20 seconds then improves on it's own and immediately goes away upon sitting down. Pt reports his symptoms are less with movement. Pt denies vertigo. Pt denies recent visual or hearing deficits. Pt reports he is very active participating in a stretching program, performing balance exercises at home from previous bouts of PT and walking 2 miles each day. Medical History: Hypotension, Dyspnea, Parkinson's Disease, GI issues with recent colonoscopy -fam history of colon cancer Vitals at rest: BP 124/78 mmHg taken seated in L arm, SpO2 97% RA, HR 64 bpm BP in standin/68 mmHg taken in L arm, no report of dizziness 5x sit to stand: 13 standard chair without use of UE Gait: decreased stride length and gait speed, no significant deviations noted in arm swing or trunk rotation Balance: Tandem EO firm surface 30 without LOB, Tandem EC firm surface 15 with self-corrected LOB, SLS firm surface EO 15 with self- corrected LOB Dysdiadochokinesia testing: LE WNL, UE alt pron/supination with decreased speed New diagnosis of cancer in past 12 No months? Lumbopelvic Eval Manual Muscle Test Bilateral Knee Extension Strength Grade 4 Good Knee Flexion Strength Grade 4 Good Hip Flexion Strength Grade 4 Good Hip Abduction Strength Grade 4 Good Hip Adduction Strength Grade 4 Good Hip Extension Strength Grade 4 Good Ankle Dorsiflexion Strength Grade 5 Normal DTR Rt Patellar 3+ Lt Patellar 3+ Rt Gastroc/Soleus 3+ Lt Gastroc/Soleus 3+ Balance Eval Subjective Hx of Complaint Comment unsteadiness and dizziness Chief Complaint vertigo No Did you feel dizzy, unsteady or faint? Yes Activity at onset change in position, bending, prolonged standing, head turns , quick movement Current Functional Limitations Comment none, able to perform above with dizziness that is brief lasting ~20 Hx of Falls Hx Falls No Number in last 6 months 0 Gait/Posture Asssessment Assistive Devices None / NA Level of Transfer Assist Independent Body Alignment Posture Rigid,Good Posture Oculomotor Gaze Oculomotor Gaze Nml: Vergence Smooth Pursuit Abn: Saccades VOR Cancellation [place] Feet Together/Eyes open/Stable Surface pass Feet Together/Eyes Closed/Stable Surface pass Feet Together/Eyes open/Unstable Surface pass Feet Together/Eyes Closed/Unstable fail Surface Dynamic Gait Index Test Protocol Gait Level Surface Mild Impairment Query Text: Instructions: Walk at your normal speed from here to the next fatmata (20'). Grading: Fatmata the lowest category that applies. Change in Gait Speed Mild Impairment Query Text: Instructions: Begin walking at your normal pace (for 5'), when I tell you go , walk as fast as you can (for 5'). When I tell you slow , walk as slowly as you can (for 5'). Grading: Fatmata the lowest category that applies. Gait with Horizontal Head Turns Mild Impairment Query Text: Instructions: Begin walking at your normal pace. When I tell you to look right , keep walking straight, but turn you head to the right. Keep looking to the right unit I tell you look left , then keep walking straight and turn your head to the left. Keep your head to the left until I tell you look straight , then keep walking straight, but return you head to the center. Grading: Fatmata the lowest category that applies. Gait with Vertical Head Turns Mild Impairment Query Text: Instructions: Begin walking at your normal pace. When I tell you to look up , keep walking staight, but tip your head up. Keep looking up until I tell you to look down , then keep walking straight and tip your head down. Keep your head down until I tell you look straight , then keep walking straight, but return your head to the center. Grading: Fatmata the lowest category that applies. Gait and Pivot Turn Mild Impairment Query Text: Instructions: Begin walking at your normal pace. When I tell you turn and stop , turn as quickly as you can to face the opposite direction and stop. Grading: Fatmata the lowest category that applies. Step Over Obstacle Normal Query Text: Instructions: Begin walking at your normal speed. When you come to the shoebox, step over it, not around it and keep walking. Grading: Fatmata the lowest category that applies. Step Around Obstacles Normal Query Text: Instructions: Begin walking at normal speed. When you come to the first cone (about 6' away), walk around the right side of it. When you come to the second cone (6' past first cone), walk around it to the left. Grading: Fatmata the lowest category that applies. Steps Mild Impairment Query Text: Instructions: Walk up these stairs as you would at home. At the top, turn around and walk down. Grading: Fatmata the lowest category that applies. Scoring Dynamic Gait Index Score 18 GROVES Balance Evaluation Reaching Forward Standing Safely, 5 inches Total Score Balance Evaluation Total (out of 56 3 points) Outpatient Therapy Assessment Impairments Problems/Impairmments Impaired Strength,Impaired Transfers,Impaired Gait Pattern,Impaired Walking, Impaired Stair Climbing, Impaired Incline Stepping, Impaired Stepping on Uneven Surface,Impaired Squatting, Impaired Bending,Impaired Balance,Impaired GROVES Score, Impaired TUG Time Prognosis Rehab Potential Good Clinical Impression Consistent with Diagnosis Yes Short Term Goals Number of Weeks 3 Improve Balance Yes: Tandem stance EC firm surface 30 without LOB to decrease fall risk Improve Self Care/Self Management Yes Patient to be Ind w/ HEP Yes Train Attendant Goals Number of Weeks 6 Increase Strength Yes: Improve BLE MMT to at least 4+/5 grossly to assist with function Improve Transfers Yes: Improve 5x sit to stand to 12 or less to decrease fall risk Increase Ability to Stand Yes: 10' w/o report of dizziness or unsteadiness to assist w/ ADLs/dec fall risk Improve Balance Yes: Tandem stance EC unstable surface 30 without LOB to dec fall risk Increase DGI Score Yes Outpatient Therapy Plan of Care Treatment Plan May Include Therapeutic Exercise Including Home Yes Exercise Program Manual Therapy Techniques Yes Neuromuscular Re-education Yes Therapeutic Activities to Return to Yes Previous Functional/Work Level Gait Training Yes ADL/Self Care Education Yes Group Therapy for Medicare Yes Eval/Re-Eval Yes Frequency Times per week 2 Duration Number of Weeks 6 Addendums This patient is a candidate for social No or vocational rehab? Patient/Guardian verbally acknowledges Yes understanding of treatment program and consents to further treatment? Patient/Guardian verbally acknowledges Yes understanding of diagnosis, prognosis and goals for treatment? Eval Complexity PT Charges 54917 - Moderate Complexity Shoulder/Elbow Eval Shoulder Objective Measurements Elbow Objective Measurements PHYSICIAN CERTIFICATION: I certify the specified therapy services for Keenan Coats are required, authorized, and reviewed every 30 days.
== END 2024-07-19 23:59 | disposition home or self-care (01) ==
LOC: PT 09:00
PROVIDERS: Visit Provider Internal Medicine Adolescent Medicine
DX: G20.A1 Parkinson's disease without dyskinesia, without mention of fluctuations (principal); R42 Dizziness and giddiness
CPT/HCPCS: 97112; 97163; 97535

== ENCOUNTER 2024-08-10 10:00 | Outpatient (RCR) | payer MEDICARE, BC, SELFPAY ==
--- NOTE | 2024-08-10 11:11 | [facility].RHREAS ---
Rehab Reassessment Rehab OP Re-assessment Start: 07/31/24 09:16 Freq: Status: Active Protocol: Document 08/10/24 10:01 [email or web address] (Rec: 08/10/24 11:11 MATEO [id number]) E-signed By Little Erickson PT Rehab Re-assessment Subjective Subjective Pt reports onset of R anterior hip pain 3 weeks ago which he states set him back. Pt states since this occurred, his legs have felt weaker and his balance and endurance have seemed worse. Pt denies recent falls, but feels like the R leg will give way with going up/down stairs. Pt reports slight improvement in symptoms of dizziness, states symptoms of dizziness occur mostly with quick movements. Pt states he no longer feels dizzy with prolonged standing. Objective Objective Notes BLE MMT: 4+/5 grossly with exception of hip flex/abd/add 4/5 Balance: Tandem stance EC firm surface 22 then self- corrected LOB 5x sit to stands: 13 without UE support Assessment Assessment Notes Pt has attended 7 PT treatment sessions consisting of aerobic exercise, LE strengthening, balance/ proprioception training, and HEP. Pt demonstrated slight improvement in balance and strength this date compared to the initial evaluation. Pt demonstrated no significant change with 5x sit to stand outcome measure although minimal deficits were originally noted. Pt continues to report slight dizziness with quick movements with minimal subjective report of improvement since the initial evaluation. Overall the pt would continue to benefit from skilled PT to further improve strength, balance/ proprioception, gait and functional activity tolerance to improve overall QOL. Patient goals met ST/3 Goals Not Met balance, LTG Revised Goals n/a Plan Plan Continue initial POC Frequency of Therapy 2x/week Duration of therapy 4 more weeks Time and Billing Re-Eval Time 10 Re-Eval Billing Units 0 Charge for PT reassessment? No Charge for OT reassessment? No PHYSICIAN CERTIFICATION: I certify the specified therapy services for Keenan Coats are required, authorized, and reviewed every 30 days.
== END 2024-08-10 23:59 | disposition home or self-care (01) ==
LOC: PT 10:00
PROVIDERS: Visit Provider Internal Medicine Adolescent Medicine
DX: R42 Dizziness and giddiness (principal); G20.A1 Parkinson's disease without dyskinesia, without mention of fluctuations
CPT/HCPCS: 97110; 97112; 97530

== ENCOUNTER 2024-09-18 14:00 | Outpatient (RCR) | payer MEDICARE, BC, SELFPAY | END 2024-09-18 23:59 | disposition home or self-care (01) | LOC: PT 14:00 | PROVIDERS: Visit Provider Internal Medicine Adolescent Medicine | DX: R42 Dizziness and giddiness (principal); G20.A1 Parkinson's disease without dyskinesia, without mention of fluctuations | CPT/HCPCS: 97112; 97530 ==

== ENCOUNTER 2024-10-04 09:00 | Outpatient (RCR) | payer MEDICARE, BC, SELFPAY | END 2024-10-04 23:59 | disposition home or self-care (01) | LOC: PT 09:00 | PROVIDERS: Visit Provider Internal Medicine Adolescent Medicine | DX: R42 Dizziness and giddiness (principal); G20.A1 Parkinson's disease without dyskinesia, without mention of fluctuations | CPT/HCPCS: 97112 ==